=== PATIENT | male | born 1935 | race Hispanic/Latino ===

== ENCOUNTER 2018-07-29 00:12 | Observation (INO) | payer MEDICARE, BC ==
[2018-07-29] MEDS ORDERED: Tetanus/Diphtheria Toxoids 0.5 ml Syringe IM ONE ×2 (01:06→01:33)
[2018-07-29 02:00] LABS: BASO % 0.3 % (0.0-2.0); HEMOGLOBIN 13.2 g/dL (12.0-18.0); LYMPH # 1.2 K/uL (1.0-4.3); LYMPH % 7.8 % (20.0-40.0); MEAN CELL VOLUME 92.7 fl (80.0-94.0); MEAN CORPUSCULAR HEMOGLOBIN 31.7 pg (27.0-31.0); MEAN CORPUSCULAR HGB CONC 34.2 g/dL (33.0-37.0); MEAN PLATELET VOLUME 8.6 fl (7.2-11.7); MONO # 0.9 K/uL (0.0-0.8); NEUT # 12.9 K/uL (1.8-7.0); NEUT % 85.9 % (50.0-75.0); NRBC % 0.1 % (0.0-0.0); PLATELET COUNT 227 K/uL (130-400); RBC 4.18 Mil/uL (4.40-5.90); RED CELL DISTRIBUTION WIDTH 12.6 % (11.5-14.5)
[2018-07-29 02:14] LABS: BLOOD UREA NITROGEN 14 mg/dl (9-20); CALCIUM 9.4 mg/dL (8.4-10.2); GFR NON-AFRICAN AMERICAN > 60
--- NOTE | 2018-07-29 02:26 | ED PDOC ---
Syncope/Near Syncope/Dizziness Time Seen by Provider: 07/29/18 00:19 Chief Complaint (Nursing): Syncope Chief Complaint (Provider): syncope History Per: Patient, Family () Additional Complaint(s): 83 y/o M with hx of DM, HTN, and HL who presents after syncopal episode with facial trauma. Patient was putting away dishes this evening at about 7pm when he suddenly had a syncopal episode. He states that his found him face down on the ground. He sustained a small laceration to Right side of face with a piece of glass plate in it that his cleaned and he got a black eye. Denies palpitations, SOB, C/P, dizziness, loss of bowel or bladder function. He then stood up to walk with his walker, walked 5 steps, felt lightheaded and fell forward with brief syncopal episode. He then hit his face on the walker and knocked out his 2 front teeth and sustained a laceration to his forehead, nose and chin. Denies prior hx of syncope or arrhythmia. He is not up to date on his tetanus vaccine. Pt states having Right shoulder/arm pain and is unable to raise his Right arm. Past Medical History Reviewed: Historical Data, Nursing Documentation, Vital Signs Vital Signs: Last Vital Signs Temp 97.6 F 07/29/18 00:18 Pulse 86 07/29/18 00:18 Resp 18 07/29/18 00:18 BP 159/91 H 07/29/18 00:18 Pulse Ox 96 07/29/18 00:18 - Medical History PMH: Diabetes, HTN, Hypercholesterolemia - Family History Family History: States: Unknown Family Hx - Allergies Allergies/Adverse Reactions: Allergies Allergy/AdvReac Type Severity Reaction Status Date / Time Penicillins Allergy RASH Verified 07/29/18 00:18 Physical Exam - Reviewed Nursing Documentation Reviewed: Yes Vital Signs Reviewed: Yes - Physical Exam Appears: Positive for: Uncomfortable Head Exam: Negative for: ATRAUMATIC (excoriation with small oozing of blood lateral to Right eye (not amenable to suture), small avulsion above left eye on forehead. + ecchymosis below Right eye. Excoriation to left nare and chin w/ small ooze of blood. ) ENT: Negative for: Other (B/L central incisors loose with blood clot in left central incisor, blood noted in mouth, no lacerations to oral mucosa) Extremity: Positive for: Tenderness (proximal humerus), Capillary Refill (< 2sec), Deformity (Right humeral deformity, + edema, no ecchymosis), Other. Ne gative for: Normal ROM (decreased flexion of Right arm) Neurologic/Psych: Positive for: Alert, operations vocational instructor II-XII (able to puff out cheeks, no tongue deviation, symmetrical smile. ), Oriented. Negative for: Motor/Sensory Deficits (no motor or sensory deficits), Aphasia, Facial Droop - Laboratory Results Result Diagrams: 07/29/18 01:53 07/29/18 01:53 - ECG O2 Sat by Pulse Oximetry: 96 Medical Decision Making Medical Decision Making: CBC, CMP, Trop Head CT w/o contrast Tele EKG Right shoulder X-ray Maxillofacial CT w/o contrast serum ETOH EKG: sinus, HR 80, no arrhythmia or ischemic change. CBC: WBCs 15K, U/A and urine culture ordered. Right shoulder x-ray: displaced proximal humeral fracture. Ice pack to Right arm. Right arm sling placed. Head CT w/o contrast: There is normal configuration of sella turcica. There are no intra or extra-axial collections. There is no mass effect or midline shift. There is no evidence of hematoma formation. No hydrocephalus is present. The ventricles are symmetrical. No abnormal calcifications are present. There is diffuse age-appropriate cerebellar and cerebral atrophy with proportionally dilated ventricles and cortical sulci. There are bilateral periventricular and subcortical white matter hypolucencies compatible with mild chronic microvascular disease. Otherwise, no significant focal abnormalities are seen either in the posterior fossa or supratentorial compartment. IMPRESSION: 1. Age-appropriate cerebellar and cerebral atrophy. 2. Mild chronic microvascular disease. 3. No evidence of acute intracranial pathology. Maxillofacial CT: Anterior facial soft tissue edema. Avulsion fractures of the dental roots in the anterior/upper midline aspect of the maxilla. Overlying soft tissue contusion. Surrounding soft tissue emphysema. Mild chronic mucosal inflammatory changes of the maxillary sinuses and ethmoid air cells. Normal bilateral orbital contents. Normal bilateral medial and inferior orbital scott. Normal bilateral maxillary bones. Normal bilateral maxillary sinuses. Normal bilateral frontozygomatic arches. Normal bilateral zygomatic temporal arches. Normal nasal bones. Normal anterior nasal spine. Normal visualized frontal, ethmoidal and sphenoid sinuses. Impression: Anterior facial soft tissue edema. Avulsion fractures of the dental roots canals in the anterior/left paramidline aspect of the maxilla. Overlying soft tissue contusion. Surrounding soft tissue emphysema. Patient and informed of X-ray and CT scan results. They prefer Dr. Manley from orthopedics. Dr. Manley to be called in AM. Patient to be admitted under Dr. Oates for telemetry monitoring and orthopedic consultation. Disposition - Clinical Impression Clinical Impression: Syncope, Closed right humeral fracture - Patient ED Disposition Is Patient to be Admitted: Yes Discussed With : Diogo Oates Doctor Will See Patient In The: ED Counseled Patient/Family Regarding: Studies Performed, Diagnosis, Need For Followup - Disposition Disposition: Transfer of Care Disposition Time: 03:30 Condition: FAIR
[2018-07-29 02:48] LABS: LARGE PLATELETS PRESENT; LYMPHOCYTE 8 % (20-50); MONOCYTE 6 % (0-10); NEUTROPHIL 86 % (42-75); PLATELET ESTIMATE NORMAL (NORMAL); TOTAL CELLS COUNTED 100
[2018-07-29 03:38] LABS: URINE BILIRUBIN NEGATIVE (NEGATIVE); URINE BLOOD NEGATIVE (NEGATIVE); URINE CLARITY CLEAR (Clear); URINE COLOR YELLOW (YELLOW); URINE GLUCOSE (UA) >=500 mg/dL (NEGATIVE); URINE LEUKOCYTE ESTERASE NEG Leu/uL (Negative); URINE PROTEIN NEGATIVE (NEGATIVE); URINE UROBILINOGEN 0.2-1.0 mg/dL (0.2-1.0)
[2018-07-29] MEDS ORDERED: Sodium Chloride 0.9% 1,000 ML IV SCH (04:30)
[2018-07-29] MEDS ORDERED: Glucagon Recombinant 1 mg Inj IM PRN (04:37)
[2018-07-29] MEDS ORDERED: Dextrose 50% SYRINGE Inj (50 ml) IV PRN (04:37)
--- NOTE | 2018-07-29 04:45 | CP.PCM.HP ---
<Erma Ching - Last Filed: 07/29/18 05:34> History of Present Illness - History of Present Illness History of Present Illness: HPI 83 yo M with history of hypertension, NIDDM2, dyslipemia, glaucoma, admitted due to syncope and subsequent RIGHT shoulder trauma. Pt presented to ED, brought in by EMS after 2 falls at home. Upon exam, he is AAOx3. Patient states that he was putting away dishes around 7:30 pm today, and was standing on his tip-toes, reaching up with his right hand to put a plate away on a top shelf, and next thing he knew he was on the ground. He denies feeling dizzy or lightheaded before the fall but does not believe he blacked out or lost con sciousness. Pt's states she heard commotion and came into kitchen to find him on the floor. He had a shard of a broken plate in his right rastafarian, which his cleaned out and put a dressing over. He was able to get up with assistance, and use his walker; did not want to come to ED at that point. Later that evening, he wanted to use the restroom around 11 pm, used walker to get up and walk towards restroom. As per , he said "I am light headed," and fell forward, hitting his head/face on horizontal bar of walker. At this point, called EMS, and EMS came, picked up pt off floor and brought to ED. Pt states he sustained injury to his R shoulder in first fall, and to his front two teeth in second fall. He did not lose function/control of bowel/bladder during either fall. Denies ringing in his ears, feeling like the room was spinning, blurred vision (out of norm due to chronic ocular issues) Pt admits to having a cocktail around 3-4 pm and 2 glasses of wine with dinner, which he does almost daily. He thinks he may have fallen due to the alcohol intake. ROS: aside from above, denies headache, vision changes, chest pain, shortness of breath, abdominal pain, nausea, vomitting, dysuria, issues with bowel movements. Past Med hx: HTN, NIDDM,dyslipidemia Past Surg hx: appendicitis, tonsillectomy Soc hx: former smoker (ages [age], 1/2 ppd at most, quit 50 yrs ago); drinks 1 cocktail (martini) in the afternoon and 1-2 glasses of wine with dinner, denies drug use. Lives with . Fam hx: father had pancreatic ca; no similar episodes of falls in family as far as pt knows Allergies: penicillin (rash) Meds: as per med rec, med list given to RN in ED; aspirin 81 mg daily, klonopin 0.5 mg HS, glucotrol 5 mg daily, ramipril 10 mg daily, clonidine 0.1 mg PO BID, simvastatin 40 mg daily, januvia 100 mg daily, lumigan eye drops both eyes HS, timolol both eyes daily ED course: Vitals: BP 159/91, HR 86, T 97.6, O2 sat 96 on room air, RR 18 EKG: sinus, HR 80, no arrhythmia or ischemic change. CBC: WBC 15; may be reactive CMP: glucose 319 Troponin neg Alcohol level 70 UA/Urine culture collected Head w/o contrast CT done- IMPRESSION: 1. Age-appropriate cerebellar and cerebral atrophy. 2. Mild chronic microvascular disease. 3. No evidence of acute intracranial pathology. Maxillofacial w/o contrast CT done: Impression: Anterior facial soft tissue edema. Avulsion fractures of the dental roots canals in the anterior/left paramidline aspect of the maxilla. Overlying soft tissue contusion. Surrounding soft tissue emphysema. Shoulder X-Ray done: displaced proximal humeral fracture. Tetanus vaccine administered 600 mg ibuprofen PO Ice pack to Right arm; right arm sling placed Present on Admission - Present on Admission Any Indicators Present on Admission: Yes History of Uncontrolled Diabetes: Yes Review of Systems - Review of Systems Review of Systems: as per HPI Past Patient History - Past Medical History & Family History Past Medical History?: Yes Past Family History: Reviewed and not pertinent - Past Social History Smoking Status: Former Smoker Alcohol: > 2 Drinks/Day Drugs: Denies Home Situation {Lives}: With Family - CARDIAC Hx Cardiac Disorders: Yes Hx Hypercholesterolemia: Yes Hx Hypertension: Yes - PULMONARY Hx Respiratory Disorders: No - NEUROLOGICAL Hx Neurological Disorder: No - HEENT Hx HEENT Problems: No - RENAL Hx Chronic Kidney Disease: No - ENDOCRINE/METABOLIC Hx Endocrine Disorders: Yes Hx Diabetes Mellitus Type 2: Yes - HEMATOLOGICAL/ONCOLOGICAL Hx Blood Disorders: No - INTEGUMENTARY Hx Dermatological Problems: No - MUSCULOSKELETAL/RHEUMATOLOGICAL Hx Musculoskeletal Disorders: No - GASTROINTESTINAL Hx Gastrointestinal Disorders: No - GENITOURINARY/GYNECOLOGICAL Hx Genitourinary Disorders: No - PSYCHIATRIC Hx Psychophysiologic Disorder: No Hx Substance Use: No - SURGICAL HISTORY Hx Surgeries: Yes Hx Appendectomy: Yes Hx Tonsillectomy: Yes - ANESTHESIA Hx Anesthesia: Yes Hx Anesthesia Reactions: No Meds Allergies/Adverse Reactions: Allergies Allergy/AdvReac Type Severity Reaction Status Date / Time Penicillins Allergy RASH Verified 07/29/18 00:18 Physical Exam - Constitutional Appears: Non-toxic, No Acute Distress - Head Exam Head Exam: NORMOCEPHALIC. absent: ATRAUMATIC Additional comments: dressing to RIGHT rastafarian lateral to RIGHT eye, ecchymosis below RIGHT eye. Dressing on LEFT nare. Dressings dry, not soaked through Multiple bruises/small lacerations on nose/cheeks - Eye Exam Eye Exam: EOMI, PERRL - ENT Exam ENT Exam: Mucous Membranes Dry Additional comments: evidence of trauma to front teeth; no bleeding lacerations noted in oral cavity - Neck Exam Neck exam: Positive for: Full Rom. Negative for: Tenderness - Respiratory Exam Respiratory Exam: Clear to Auscultation Bilateral, NORMAL BREATHING PATTERN. absent: Respiratory Distress - Cardiovascular Exam Cardiovascular Exam: REGULAR RHYTHM, +S1, +S2 - GI/Abdominal Exam GI & Abdominal Exam: Soft. absent: Tenderness - Extremities Exam Extremities exam: Negative for: calf tenderness, full ROM Additional comments: R upper ext in sling; ROM not tested due to already known fracture and sling in place No other evidence of joint trauma/limited ROM of other large joints No pedal edema - Neurological Exam Neurological exam: Alert, CN II-XII Intact, Oriented x3 Additional comments: speech clear, no facial droop no focal deficits apparent - Psychiatric Exam Psychiatric exam: Normal Mood - Skin Skin Exam: Abrasion (as above), Warm Results - Vital Signs Recent Vital Signs: Last Vital Signs Temp 97.6 F 07/29/18 00:18 Pulse 88 07/29/18 03:36 Resp 19 07/29/18 03:36 BP 155/73 H 07/29/18 03:36 Pulse Ox 96 07/29/18 03:38 - Labs Result Diagrams: 07/29/18 01:53 07/29/18 01:53 Labs: Laboratory Results - last 24 hr 07/29/18 07/29/18 01:53 01:53 WBC 15.0 H RBC 4.18 L Hgb 13.2 Hct 38.8 MCV 92.7 MCH 31.7 H MCHC 34.2 RDW 12.6 Plt Count 227 MPV 8.6 Neut % (Auto) 85.9 H Lymph % (Auto) 7.8 L [place] % (Auto) 6.0 Eos % (Auto) 0.0 Baso % (Auto) 0.3 Neut # (Auto) 12.9 H Lymph # (Auto) 1.2 [place] # (Auto) 0.9 H Eos # (Auto) 0.0 Baso # (Auto) 0.0 Neutrophils % (Manual) 86 H Lymphocytes % (Manual) 8 L Monocytes % (Manual) 6 Platelet Estimate Normal Large Platelets Present RBC Morphology Normal Sodium 136 Potassium 4.3 Chloride 98 Carbon Dioxide 20 L Anion Gap 22 H BUN 14 Creatinine 0.9 Est GFR ( Amer) > 60 Est GFR (Non-Af Amer) > 60 Random Glucose 319 H Calcium 9.4 Troponin I < 0.0120 Alcohol, Quantitative 70 H Assessment & Plan - Assessment and Plan (Free Text) Assessment: 83 yo M with history of hypertension, NIDDM2, dyslipemia, glaucoma, admitted due to syncope x2 at home, and subsequent RIGHT shoulder trauma with displaced proximal humerus fracture. Plan: Displaced proximal humeral fracture - Right arm sling in place from ED - Ortho consult - Dr. Manley - NPO for possible intervention - PT/INR, Type and Screen, CBC in am - Pain control w/ toradol for now Syncope - Admitted to tele, continuous equipment monitor phototypesetting - May be due to EtOH - Echocardiogram - Carotid/vertebral duplex - B12, folate, Mg, Phos, CMP in am - F/u UA, urine culture Lacerations to face - s/p tetanus vaccine - Topical bacitracin NIDDM2 - Hold home meds januvia, glucotrol for now, NPO - Accuchecks Q6 hrs; moderate coverage scale and hypoglycemia protocol Hypertension - Hold home meds clonidine, ramipril for now, NPO Hyperlipidemia - Hold home med simvastatin for now Glaucoma - Resume home meds timolol, lumigan Diet - NPO - 80 ml/hr NS IVF DVT prophylaxis - SCD for now Pt seen/examined with Dr. Oates. <Diogo Oates - Last Filed: 07/29/18 07:05> Results - Vital Signs Recent Vital Signs: Last Vital Signs Temp 97.7 F 07/29/18 05:12 Pulse 88 07/29/18 06:25 Resp 18 07/29/18 05:35 BP 130/80 07/29/18 06:25 Pulse Ox 99 07/29/18 05:35 - Labs Result Diagrams: 07/29/18 01:53 07/29/18 01:53 Labs: Laboratory Results - last 24 hr 07/29/18 07/29/18 07/29/18 01:53 01:53 03:15 WBC 15.0 H RBC 4.18 L Hgb 13.2 Hct 38.8 MCV 92.7 MCH 31.7 H MCHC 34.2 RDW 12.6 Plt Count 227 MPV 8.6 Neut % (Auto) 85.9 H Lymph % (Auto) 7.8 L [place] % (Auto) 6.0 Eos % (Auto) 0.0 Baso % (Auto) 0.3 Neut # (Auto) 12.9 H Lymph # (Auto) 1.2 [place] # (Auto) 0.9 H Eos # (Auto) 0.0 Baso # (Auto) 0.0 Neutrophils % (Manual) 86 H Lymphocytes % (Manual) 8 L Monocytes % (Manual) 6 Platelet Estimate Normal Large Platelets Present RBC Morphology Normal Sodium 136 Potassium 4.3 Chloride 98 Carbon Dioxide 20 L Anion Gap 22 H BUN 14 Creatinine 0.9 Est GFR ( Amer) > 60 Est GFR (Non-Af Amer) > 60 POC Glucose (mg/dL) Random Glucose 319 H Calcium 9.4 Troponin I < 0.0120 Urine Color Yellow Urine Clarity Clear Urine pH 5.0 Ur Specific [place] 1.023 Urine Protein Negative Urine Glucose (UA) >=500 Urine Ketones 20 Urine Blood Negative Urine Nitrate Negative Urine Bilirubin Negative Urine Urobilinogen 0.2-1.0 Ur Leukocyte Esterase Neg Urine RBC (Auto) < 1 Urine Microscopic WBC < 1 Hyaline Casts 3-5 H Alcohol, Quantitative 70 H 07/29/18 05:28 WBC RBC Hgb Hct MCV MCH MCHC RDW Plt Count MPV Neut % (Auto) Lymph % (Auto) [place] % (Auto) Eos % (Auto) Baso % (Auto) Neut # (Auto) Lymph # (Auto) [place] # (Auto) Eos # (Auto) Baso # (Auto) Neutrophils % (Manual) Lymphocytes % (Manual) Monocytes % (Manual) Platelet Estimate Large Platelets RBC Morphology Sodium Potassium Chloride Carbon Dioxide Anion Gap BUN Creatinine Est GFR ( Amer) Est GFR (Non-Af Amer) POC Glucose (mg/dL) 363 H Random Glucose Calcium Troponin I Urine Color Urine Clarity Urine pH Ur Specific [place] Urine Protein Urine Glucose (UA) Urine Ketones Urine Blood Urine Nitrate Urine Bilirubin Urine Urobilinogen Ur Leukocyte Esterase Urine RBC (Auto) Urine Microscopic WBC Hyaline Casts Alcohol, Quantitative Attending/Attestation - Attestation I have personally seen and examined this patient.: Yes I have fully participated in the care of the patient.: Yes I have reviewed all pertinent clinical information: Yes Notes (Text): 07/29/18 07:01 I saw and examined this patient shoulder to shoulder with Dr Ching. i agree w ith the assessment and plan outlined above. The patient will be placed on Telemetry monitoring for Cardiac dysrrhythmias. ECHO will be done along with Carotid US. Cardiology is consulted. Orthopedic is consulted for the Right shoulder fracture. Diogo Oates MD.
[2018-07-29 06:18] VITALS: RESP 18
[2018-07-29] MEDS ORDERED: EnalaprilAT 1.25 mg/ml Inj IVP STA (06:40)
[2018-07-29] MEDS: Insulin Lispro (humaLOG) 100 Units/ml Inj SC SCH ×2 (06:54→11:45)
--- NOTE | 2018-07-29 08:11 | CT ---
Date of service: 07/29/2018 PROCEDURE: CT HEAD WITHOUT CONTRAST. HISTORY: syncopal episode COMPARISON: None available. TECHNIQUE: Axial computed tomography images were obtained through the head/brain without intravenous contrast. Radiation dose: Total exam DLP = 839.97 mGy-cm. This CT exam was performed using one or more of the following dose reduction techniques: Automated exposure control, adjustment of the mA and/or kV according to patient size, and/or use of iterative reconstruction technique. FINDINGS: HEMORRHAGE: No intracranial hemorrhage. BRAIN: No mass effect or edema. Atrophy and mild chronic periventricular white matter ischemic disease. VENTRICLES: Unremarkable. No hydrocephalus. CALVARIUM: Unremarkable. PARANASAL SINUSES: Unremarkable as visualized. No significant inflammatory changes. MASTOID AIR CELLS: Unremarkable as visualized. No inflammatory changes. OTHER FINDINGS: None. IMPRESSION: No acute hemorrhage.
--- NOTE | 2018-07-29 08:14 | CT ---
Date of service: 07/29/2018 PROCEDURE: CT MAXILLOFACIAL BONES WITHOUT CONTRAST HISTORY: syncope COMPARISON: None available. TECHNIQUE: Contiguous axial CT images of the maxillofacial bones were obtained. Coronal and sagittal reformats were generated. Radiation dose: Total exam DLP = 836.12 mGy-cm. This CT exam was performed using one or more of the following dose reduction techniques: Automated exposure control, adjustment of the mA and/or kV according to patient size, and/or use of iterative reconstruction technique. FINDINGS: NASAL BONES: Unremarkable. ORBITS: Unremarkable. PARANASAL SINUSES/ MASTOIDS: Clear. MAXILLA: Avulsion fractures of the dental root canals in the anterior left paramidline aspect of the maxilla. MANDIBLE/ TEMPOROMANDIBULAR JOINTS: Unremarkable. SKULL BASE: Unremarkable. TEMPORAL BONES: Middle ears and mastoid grossly unremarkable. OTHER FINDINGS: Anterior facial soft tissue edema with. Soft tissue contusion. Surrounding soft tissue emphysema. IMPRESSION: Avulsion fractures of the dental root canals in the anterior left paramidline aspect of the maxilla.
--- NOTE | 2018-07-29 08:38 | RAD ---
Date of service: 07/29/2018 PROCEDURE: Radiographs of the Right Shoulder HISTORY: s/p fall, shoulder pain, ? dislocation COMPARISON: No prior. FINDINGS: BONES: Comminuted impaction fracture of the proximal humeral neck. JOINTS: Normal. Glenohumeral and acromioclavicular joints preserved. No osteoarthritis. SOFT TISSUES: Normal. OTHER FINDINGS: None. IMPRESSION: Comminuted impaction fracture of the proximal humeral neck.
[2018-07-29] MEDS ORDERED: RAMIPRIL 10 MG PO SCH (09:00)
[2018-07-29] MEDS ORDERED: Timolol 0.25% Ophth SOLN OU SCH (09:00)
--- NOTE | 2018-07-29 09:06 | RAD ---
Date of service: 07/29/2018 PROCEDURE: CHEST RADIOGRAPH, 1 VIEW HISTORY: preop COMPARISON: None available. FINDINGS: LUNGS: Clear. PLEURA: No pneumothorax or pleural fluid seen. CARDIOVASCULAR: No aortic atherosclerotic calcification present. Normal. OSSEOUS STRUCTURES: No significant abnormalities. VISUALIZED UPPER ABDOMEN: Normal. OTHER FINDINGS: None. IMPRESSION: No active disease.
--- NOTE | 2018-07-29 10:53 | CARD ---
APPROVED REPORT Date of service: 07/29/2018 EXAM: Two-dimensional and M-mode echocardiogram with Doppler and color Doppler. Other Information Quality : AverageRhythm : NSR INDICATION Syncope 2D DIMENSIONS IVSd1.32 (0.7-1.1cm)LVDd3.48 (3.9-5.9cm) LVOT Diameter1.71 (1.8-2.4cm)PWd1.29 (0.7-1.1cm) IVSs1.53 (0.8-1.2cm)LVDs2.28 (2.5-4.0cm) FS (%) 34.6 %PWs1.30 (0.8-1.2cm) M-Mode DIMENSIONS Left Atrium (MM)3.38 (2.5-4.0cm)IVSd1.12 (0.7-1.1cm) Aortic Root2.47 (2.2-3.7cm)LVDd3.71 (4.0-5.6cm) Aortic Cusp Exc.1.53 (1.5-2.0cm)PWd1.26 (0.7-1.1cm) IVSs1.65 cmFS (%) 43 % LVDs2.12 (2.0-3.8cm)PWs1.82 cm Aortic Valve AoV Peak Rmbrjyiz402.8cm/sAoV VTI27.9cmAO Peak GR.17mmHg LVOT Peak Zsdcwfxb883.3cm/sLVOT VTI18.08cmAO Mean GR.9mmHg ESTEPHANIE (VMAX)0.38rr5KKL (VTI)0.80cm2 Mitral Valve MV E Mwschtsu50.2cm/sMV DECEL [id number] A Iqrqhcar112.4cm/s MV KZD73sgO/A ratio0.6MVA (PHT)2.88cm2 TDI E/Lateral E'0.0E/Medial E'0.0 LEFT VENTRICLE The left ventricle is normal size. There is normal left ventricular wall thickness. The left ventricle is hyperdynamic. >80% Vigorous wall motion. LV cavity is virtually obliterated at end systole. Transmitral Doppler flow pattern is Grade I-abnormal relaxation pattern. RIGHT VENTRICLE The right ventricle is normal size. There is normal right ventricular wall thickness. The right ventricular systolic function is normal. ATRIA The left atrium size is normal. The right atrium size is normal. AORTIC VALVE The aortic valve is normal in structure. No aortic regurgitation is present. There is no aortic valvular stenosis. MITRAL VALVE The mitral valve is normal in structure. Chordae show BRIDGETT with a mild gradient in the LV outflow tract. There is no evidence of mitral valve prolapse. There is no mitral valve stenosis. There is no mitral valve regurgitation noted. TRICUSPID VALVE The tricuspid valve is normal in structure. There is no tricuspid valve regurgitation noted. PULMONIC VALVE The pulmonary valve is normal in structure. There is no pulmonic valvular regurgitation. GREAT VESSELS The aortic root is normal in size. Due to poor image quality, the IVC could not be assessed. PERICARDIAL EFFUSION The pericardium appears normal. <Conclusion> The left ventricle is normal size. There is normal left ventricular wall thickness. Vigorous wall motion. LV cavity is virtually obliterated at end systole. The left ventricle is hyperdynamic. >80% Transmitral Doppler flow pattern is Grade I-abnormal relaxation pattern. Chordae show BRIDGETT with a mild gradient in the LV outflow tract.
[2018-07-29 11:05] LABS: BASO % 0.3 % (0.0-2.0); HEMOGLOBIN 11.4 g/dL (12.0-18.0); INR 1.1; LYMPH # 1.3 K/uL (1.0-4.3); LYMPH % 8.4 % (20.0-40.0); MEAN CELL VOLUME 92.2 fl (80.0-94.0); MEAN CORPUSCULAR HEMOGLOBIN 31.9 pg (27.0-31.0); MEAN CORPUSCULAR HGB CONC 34.6 g/dL (33.0-37.0); MEAN PLATELET VOLUME 9.4 fl (7.2-11.7); MONO # 1.6 K/uL (0.0-0.8); MONO % 10.2 % (0.0-10.0); NEUT # 12.3 K/uL (1.8-7.0); NEUT % 81.1 % (50.0-75.0); NRBC % 0.1 % (0.0-0.0); PROTHROMBIN TIME 12.3 Seconds (9.8-13.1); RBC 3.57 Mil/uL (4.40-5.90); RED CELL DISTRIBUTION WIDTH 12.6 % (11.5-14.5); WHITE BLOOD COUNT 15.2 K/uL (4.8-10.8)
--- NOTE | 2018-07-29 11:11 | CP.PCM.CON ---
History of Present Illness - History of Present Illness History of Present Illness: This 83-year-old man hypertensive with diabetes and dyslipidemia and glaucoma came into the hospital after having fallen at home having injured his right shoulder and fell again 3 hours later in his bathroom severely injur ing his face. He is being evaluated for surgical fixation of his right shoulder injury. The patient is quite active and climbs multiple flights of stairs and is able to walk 6-8 blocks couple of times a day briskly without any difficulty. He has never experienced any chest pain or palpitations or sudden shortness of breath suggestive of congestive cardiac failure. He is not a smoker. He has a history of spinal stenosis. Physical examination shows an elderly pleasant man with multiple lacerations of face which have been addressed. He is alert awake and coherent. Breathes comfortably at 16 breaths/min and can carry on a conversation. His heart rate was 68 bpm regular and his blood pressure was 130/70 mmHg. His jugular venous pressure was not elevated and there was no edema over his lower extremity. The pedal pulses were well felt. There were no carotid bruits. The apex was not p alpable. The first and second heart sounds were normal. There was a brief systolic murmur in the second and third intercostal space in the left parasternal region. It did not radiate to his neck or to his axilla. There were no rales. His abdomen was soft liver and spleen are not palpable. His electrocardiogram shows sinus rhythm with a normal EKG pattern. Echocardiogram shows vigorous left ventricular systolic function with a small gradient in the left ventricular outflow tract. His lab data was noted. Impression: Accidental fall with right shoulder injury. History of hypertension, diabetes and dyslipidemia. Glaucoma. Spinal stenosis. The patient is medically stable to proceed with the planned surgical intervention under necessary anesthesia. Past Patient History - Past Medical History & Family History Past Medical History?: Yes Past Family History: Reviewed and not pertinent - Past Social History Smoking Status: Former Smoker Alcohol: > 2 Drinks/Day Drugs: Denies Home Situation {Lives}: With Family - CARDIAC Hx Cardiac Disorders: Yes Hx Hypercholesterolemia: Yes Hx Hypertension: Yes - PULMONARY Hx Respiratory Disorders: No - NEUROLOGICAL Hx Neurological Disorder: No - HEENT Hx HEENT Problems: No - RENAL Hx Chronic Kidney Disease: No - ENDOCRINE/METABOLIC Hx Endocrine Disorders: Yes Hx Diabetes Mellitus Type 2: Yes - HEMATOLOGICAL/ONCOLOGICAL Hx Blood Disorders: No - INTEGUMENTARY Hx Dermatological Problems: No - MUSCULOSKELETAL/RHEUMATOLOGICAL Hx Musculoskeletal Disorders: No - GASTROINTESTINAL Hx Gastrointestinal Disorders: No - GENITOURINARY/GYNECOLOGICAL Hx Genitourinary Disorders: No - PSYCHIATRIC Hx Psychophysiologic Disorder: No Hx Substance Use: No - SURGICAL HISTORY Hx Surgeries: Yes Hx Appendectomy: Yes Hx Tonsillectomy: Yes - ANESTHESIA Hx Anesthesia: Yes Hx Anesthesia Reactions: No Meds Allergies/Adverse Reactions: Allergies Allergy/AdvReac Type Severity Reaction Status Date / Time Penicillins Allergy RASH Verified 07/29/18 00:18 - Medications Medications: Current Medications Aspirin (Ecotrin) 81 mg PO DAILY [facility] Atorvastatin Calcium (Lipitor) 20 mg PO HS [facility] Bacitracin (Bacitracin) 1 ea TOP TID MIKEY Clonazepam (Klonopin) 0.5 mg PO HS [facility] Clonidine HCl (Catapres) 0.1 mg PO BID [facility] Dextrose (Dextrose 50% Inj) 0 ml IV STAT PRN; Protocol PRN Reason: Hypoglycemia Protocol Dextrose (Glutose 15) 0 gm PO ONCE PRN; Protocol PRN Reason: Hypoglycemia Protocol Glipizide (Glucotrol) 5 mg PO BID [facility] Glucagon (Glucagen Diagnostic Kit) 0 mg IM STAT PRN; Protocol PRN Reason: Hypoglycemia Protocol Sodium Chloride (Sodium Chloride 0.9%) 1,000 mls @ 80 mls/hr IV .[id number] [facility] Last Admin: 07/29/18 06:31 Dose: 80 mls/hr Insulin Human Lispro (Humalog) 0 units SC Q6 [facility]; Protocol Last Admin: 07/29/18 06:54 Dose: 8 u Ketorolac Tromethamine (Toradol) 15 mg IVP Q6 PRN PRN Reason: Pain, Mild (1-3) Ketorolac Tromethamine (Toradol) 30 mg IVP Q6 PRN PRN Reason: Pain, moderate (4-7) Latanoprost (Xalatan Opht) 1 drop OU HS [facility] Ramipril (Altace) 10 mg PO DAILY [facility] Sitagliptin Phosphate (Januvia) 100 mg PO DAILY [facility] Timolol Maleate (Timoptic 0.25% Ophth Soln) 1 drop OU DAILY [facility] Results - Vital Signs Recent Vital Signs: Last Vital Signs Temp 97.9 F 07/29/18 08:54 Pulse 94 H 02/16/19 08:54 Resp 18 07/29/18 08:54 BP 147/78 07/29/18 09:56 Pulse Ox 100 07/29/18 08:54 - Labs Result Diagrams: 07/29/18 01:53 07/29/18 01:53 Labs: Laboratory Results - last 24 hr 07/29/18 07/29/18 07/29/18 01:53 01:53 03:15 WBC 15.0 H RBC 4.18 L Hgb 13.2 Hct 38.8 MCV 92.7 MCH 31.7 H MCHC 34.2 RDW 12.6 Plt Count 227 MPV 8.6 Neut % (Auto) 85.9 H Lymph % (Auto) 7.8 L [place] % (Auto) 6.0 Eos % (Auto) 0.0 Baso % (Auto) 0.3 Neut # (Auto) 12.9 H Lymph # (Auto) 1.2 [place] # (Auto) 0.9 H Eos # (Auto) 0.0 Baso # (Auto) 0.0 Neutrophils % (Manual) 86 H Lymphocytes % (Manual) 8 L Monocytes % (Manual) 6 Platelet Estimate Normal Large Platelets Present RBC Morphology Normal PT INR Sodium 136 Potassium 4.3 Chloride 98 Carbon Dioxide 20 L Anion Gap 22 H BUN 14 Creatinine 0.9 Est GFR ( Amer) > 60 Est GFR (Non-Af Amer) > 60 POC Glucose (mg/dL) Random Glucose 319 H Calcium 9.4 Troponin I < 0.0120 Urine Color Yellow Urine Clarity Clear Urine pH 5.0 Ur Specific [place] 1.023 Urine Protein Negative Urine Glucose (UA) >=500 Urine Ketones 20 Urine Blood Negative Urine Nitrate Negative Urine Bilirubin Negative Urine Urobilinogen 0.2-1.0 Ur Leukocyte Esterase Neg Urine RBC (Auto) < 1 Urine Microscopic WBC < 1 Hyaline Casts 3-5 H Alcohol, Quantitative 70 H BBK History Checked 07/29/18 07/29/18 07/29/18 05:28 10:30 10:30 WBC RBC Hgb Hct MCV MCH MCHC RDW Plt Count MPV Neut % (Auto) Lymph % (Auto) [place] % (Auto) Eos % (Auto) Baso % (Auto) Neut # (Auto) Lymph # (Auto) [place] # (Auto) Eos # (Auto) Baso # (Auto) Neutrophils % (Manual) Lymphocytes % (Manual) Monocytes % (Manual) Platelet Estimate Large Platelets RBC Morphology PT 12.3 INR 1.1 Sodium Potassium Chloride Carbon Dioxide Anion Gap BUN Creatinine Est GFR ( Amer) Est GFR (Non-Af Amer) POC Glucose (mg/dL) 363 H Random Glucose Calcium Troponin I Urine Color Urine Clarity Urine pH Ur Specific [place] Urine Protein Urine Glucose (UA) Urine Ketones Urine Blood Urine Nitrate Urine Bilirubin Urine Urobilinogen Ur Leukocyte Esterase Urine RBC (Auto) Urine Microscopic WBC Hyaline Casts Alcohol, Quantitative BBK History Checked No verified bt 07/29/18 10:59 WBC RBC Hgb Hct MCV MCH MCHC RDW Plt Count MPV Neut % (Auto) Lymph % (Auto) [place] % (Auto) Eos % (Auto) Baso % (Auto) Neut # (Auto) Lymph # (Auto) [place] # (Auto) Eos # (Auto) Baso # (Auto) Neutrophils % (Manual) Lymphocytes % (Manual) Monocytes % (Manual) Platelet Estimate Large Platelets RBC Morphology PT INR Sodium Potassium Chloride Carbon Dioxide Anion Gap BUN Creatinine Est GFR ( Amer) Est GFR (Non-Af Amer) POC Glucose (mg/dL) 341 H Random Glucose Calcium Troponin I Urine Color Urine Clarity Urine pH Ur Specific [place] Urine Protein Urine Glucose (UA) Urine Ketones Urine Blood Urine Nitrate Urine Bilirubin Urine Urobilinogen Ur Leukocyte Esterase Urine RBC (Auto) Urine Microscopic WBC Hyaline Casts Alcohol, Quantitative BBK History Checked
[2018-07-29 11:13] LABS: ALB/GLOB RATIO 1.3 (1.0-2.1); ALT/SGPT 24 U/L (21-72); AST/SGOT 27 U/L (17-59); BLOOD UREA NITROGEN 22 mg/dl (9-20); CALCIUM 9.3 mg/dL (8.4-10.2); GFR NON-AFRICAN AMERICAN 53
[2018-07-29] MEDS: Bacitracin 500 Units/gm Oint Foilpak UD TOP SCH ×2 (11:44→14:52)
[2018-07-29 12:45] VITALS: BP 145/86; PULSE 86; TEMP 97.6; O2SAT 95
--- NOTE | 2018-07-29 13:58 | CT ---
Date of service: 07/29/2018 PROCEDURE: HISTORY: right femoral fracture COMPARISON: TECHNIQUE: FINDINGS: Comminuted fracture of the proximal humor neck and head with multiple fracture fragments and associated the soft tissue swelling.no dislocation. IMPRESSION: As above
--- NOTE | 2018-07-29 16:00 | CP.PCM.DIS ---
Provider - Provider Date of Admission: 07/29/18 03:29 Attending physician: Diogo Oates Consults: 07/29/18 04:42 Orthopedic Consult Stat Comment: shoulder/humerus fracture Consulting Provider: Flynn Manley Consulting Physician: Flynn Manley Reason for Consult: shoulder/humerus fracture 07/29/18 06:43 Cardiology Consult Routine Comment: Consulting Provider: Bridger Boyd Consulting Physician: Bridger Boyd Reason for Consult: Syncope Time Spent in preparation of Discharge (in minutes): 20 Diagnosis - Discharge Diagnosis (1) Closed right humeral fracture Status: Acute Comment: -f/u with Dr Manley (2) Syncope Status: Resolved Comment: - no cardiac origen. -may be 2/2 ETOH (3) Diabetes Status: Acute Comment: -c/w home meds (4) HTN (hypertension) Status: Chronic Comment: -c/w home meds. -Aspirin discontinued (5) HLD (hyperlipidemia) Status: Chronic Comment: c/w home meds Hospital Course - Lab Results Lab Results: Most Recent Lab Values WBC 15.2 K/uL (4.8-10.8) H 07/29/18 10:30 RBC 3.57 Mil/uL (4.40-5.90) L 07/29/18 10:30 Hgb 11.4 g/dL (12.0-18.0) L 07/29/18 10:30 Hct 32.9 % (35.0-51.0) L 07/29/18 10:30 MCV 92.2 fl (80.0-94.0) 07/29/18 10:30 MCH 31.9 pg (27.0-31.0) H 07/29/18 10:30 MCHC 34.6 g/dL (33.0-37.0) 07/29/18 10:30 RDW 12.6 % (11.5-14.5) 07/29/18 10:30 Plt Count 222 K/uL (130-400) 07/29/18 10:30 MPV 9.4 fl (7.2-11.7) 07/29/18 10:30 Neut % (Auto) 81.1 % (50.0-75.0) H 07/29/18 10:30 Lymph % (Auto) 8.4 % (20.0-40.0) L 07/29/18 10:30 Love % (Auto) 10.2 % (0.0-10.0) H 07/29/18 10:30 Eos % (Auto) 0.0 % (0.0-4.0) 07/29/18 10:30 Baso % (Auto) 0.3 % (0.0-2.0) 07/29/18 10:30 Neut # (Auto) 12.3 K/uL (1.8-7.0) H 07/29/18 10:30 Lymph # (Auto) 1.3 K/uL (1.0-4.3) 07/29/18 10:30 Love # (Auto) 1.6 K/uL (0.0-0.8) H 07/29/18 10:30 Eos # (Auto) 0.0 K/uL (0.0-0.7) 07/29/18 10:30 Baso # (Auto) 0.0 K/uL (0.0-0.2) 07/29/18 10:30 Neutrophils % (Manual) 86 % (42-75) H 07/29/18 01:53 Lymphocytes % (Manual) 8 % (20-50) L 07/29/18 01:53 Monocytes % (Manual) 6 % (0-10) 07/29/18 01:53 Platelet Estimate Normal (NORMAL) 07/29/18 01:53 Large Platelets Present 07/29/18 01:53 RBC Morphology Normal (NORMAL) 07/29/18 01:53 PT 12.3 Seconds (9.8-13.1) 07/29/18 10:30 INR 1.1 07/29/18 10:30 Sodium 136 mmol/l (132-148) 07/29/18 10:30 Potassium 4.3 MMOL/L (3.6-5.0) 07/29/18 10:30 Chloride 98 mmol/L (98-107) 07/29/18 10:30 Carbon Dioxide 20 mmol/L (22-30) L 07/29/18 10:30 Anion Gap 22 (10-20) H 07/29/18 10:30 BUN 22 mg/dl (9-20) H 07/29/18 10:30 Creatinine 1.3 mg/dl (0.8-1.5) 07/29/18 10:30 Est GFR ( Amer) > 60 07/29/18 10:30 Est GFR (Non-Af Amer) 53 07/29/18 10:30 POC Glucose (mg/dL) 341 mg/dL (65-110) H 07/29/18 10:59 Random Glucose 373 mg/dL (75-110) H 07/29/18 10:30 Calcium 9.3 mg/dL (8.4-10.2) 07/29/18 10:30 Phosphorus 4.3 mg/dl (2.5-4.5) 07/29/18 10:30 Magnesium 1.9 MG/DL (1.6-2.3) 07/29/18 10:30 Total Bilirubin 1.1 mg/dl (0.2-1.3) 07/29/18 10:30 AST 27 U/L (17-59) 07/29/18 10:30 ALT 24 U/L (21-72) 07/29/18 10:30 Alkaline Phosphatase 51 U/L (38-126) 07/29/18 10:30 Troponin I < 0.0120 ng/mL (0.00-0.120) 07/29/18 01:53 Total Protein 7.2 G/DL (6.3-8.2) 07/29/18 10:30 Albumin 4.0 g/dL (3.5-5.0) 07/29/18 10:30 Globulin 3.1 gm/dL (2.2-3.9) 07/29/18 10:30 Albumin/Globulin Ratio 1.3 (1.0-2.1) 07/29/18 10:30 Vitamin B12 382 pg/mL (239-931) 07/29/18 10:30 Urine Color Yellow (YELLOW) 07/29/18 03:15 Urine Clarity Clear (Clear) 07/29/18 03:15 Urine pH 5.0 (5.0-8.0) 07/29/18 03:15 Ur Specific [place] 1.023 (1.003-1.030) 07/29/18 03:15 Urine Protein Negative mg/dL (NEGATIVE) 07/29/18 03:15 Urine Glucose (UA) >=500 mg/dL (NEGATIVE) 07/29/18 03:15 Urine Ketones 20 mg/dL (NEGATIVE) 07/29/18 03:15 Urine Blood Negative (NEGATIVE) 07/29/18 03:15 Urine Nitrate Negative (NEGATIVE) 07/29/18 03:15 Urine Bilirubin Negative (NEGATIVE) 07/29/18 03:15 Urine Urobilinogen 0.2-1.0 mg/dL (0.2-1.0) 07/29/18 03:15 Ur Leukocyte Esterase Neg Ghassan/uL (Negative) 07/29/18 03:15 Urine RBC (Auto) < 1 /hpf (0-3) 07/29/18 03:15 Urine Microscopic WBC < 1 /hpf (0-5) 07/29/18 03:15 Hyaline Casts 3-5 /hpf (0-2) H 07/29/18 03:15 Alcohol, Quantitative 70 mg/dl (0-10) H 07/29/18 01:53 Blood Type A POSITIVE 07/29/18 10:30 Blood Type Confirm A POSITIVE 07/29/18 01:53 Antibody Screen Negative 07/29/18 10:30 BBK History Checked No verified bt 07/29/18 10:30 - Hospital Course Hospital Course: 83 yo M with history of hypertension, NIDDM2, dyslipemia, glaucoma, admitted due to syncope x2 at home, and subsequent RIGHT shoulder trauma with displaced proximal humerus fracture and MAxillar fx. Pain controlled with pain meds and sling. Ortho consulted Dr Manley. Ortho agree to discharge pt and to have f/u next tuesday in his office 1 pm for evaluation and surgery schedule. Patient cleared by forensic chemist Dr Jade for surgery. Percocet script given to patient for pain controlled . Right Shoulder CXR and CT RUE showed right comminute fx, no dislocation. CT Maxillofacial w/o contrast CT showed Anterior facial soft tissue edema. Avulsion fractures of the dental roots canals in the anterior/left paramidline aspect of the maxilla. Overlying soft tissue contusion. Surrounding soft tissue emphysema. EKG NSR. Echo showed vigorous left ventricular systolic function with a small gradient in the left ventricular outflow tract. Discharge Exam - Head Exam Head Exam: NORMOCEPHALIC. absent: ATRAUMATIC Additional comments: Right side temporal small laceration superficial Left side frontal , left side chin small skin abrasion. - Respiratory Exam Respiratory Exam: Clear to PA & Lateral - Cardiovascular Exam Cardiovascular Exam: REGULAR RHYTHM, +S1, +S2 - GI/Abdominal Exam GI & Abdominal Exam: Normal Bowel Sounds - Extremities Exam Additional comments: RUE : Sling in place over right shoulder with limited ROM due to fx. Right hand no limited ROM, neurovascular intact - Psychiatric Exam Psychiatric exam: Normal Affect, Normal Mood - Skin Skin Exam: Abrasion - Additional Findings Additional findings: over face and right temporal area Discharge Plan - Discharge Medications Prescriptions: Bacitracin 1 cre TOP DAILY #1 fp - Follow Up Plan Condition: FAIR Disposition: HOME/ ROUTINE Instructions: Preventing Falls in the Older Adult, Shoulder Fracture (DC) Additional Instructions: Follow up with Dr Manley 07/31 at 1 PM -Take percocet 1 tab Q4H PRN pain . Script given to patient Referrals: Flynn Manley MD [Staff Provider] -
[2018-07-29] MEDS ORDERED: Potassium Chloride 20 mEq/15 ml LIQ UD PO ONE (16:25)
[2018-07-29 21:05] LABS: FOLATE 14.6 ng/mL
[2018-07-29] MEDS ORDERED: Latanoprost 0.005% Opht SOUTION OU SCH (22:00)
--- NOTE | 2018-07-30 01:20 | CARD ---
APPROVED REPORT Date of service: 07/29/2018 EKG Measurement Heart [id number] <Conclusion> Normal sinus rhythm Normal ECG
== END 2018-07-29 16:23 | disposition home or self-care (01) ==
LOC: H.ER 00:12 → H.ERHOLD 03:29 → H.TEL 04:56
PROVIDERS: ADMIT Internal Medicine; ATTEND Internal Medicine
DX: S42.201A Unspecified fracture of upper end of right humerus, initial encounter for closed fracture (principal); R55 Syncope and collapse; S01.81XA Laceration without foreign body of other part of head, initial encounter; S02.401A Maxillary fracture, unspecified side, initial encounter for closed fracture; S03.2XXA Dislocation of tooth, initial encounter; R01.1 Cardiac murmur, unspecified; R42 Dizziness and giddiness; Z23 Encounter for immunization; W19.XXXA Unspecified fall, initial encounter; Y92.009 Unspecified place in unspecified non-institutional (private) residence as the place of occurrence of the external cause; Z80.0 Family history of malignant neoplasm of digestive organs; Z79.84 Long term (current) use of oral hypoglycemic drugs; Z87.891 Personal history of nicotine dependence; Z90.49 Acquired absence of other specified parts of digestive tract; D72.829 Elevated white blood cell count, unspecified; E11.9 Type 2 diabetes mellitus without complications; E78.00 Pure hypercholesterolemia, unspecified; E78.5 Hyperlipidemia, unspecified; H40.9 Unspecified glaucoma; I10 Essential (primary) hypertension; M48.00 Spinal stenosis, site unspecified
CPT/HCPCS: 36415; 70450; 70486; 71045; 73030; 73200; 80053; 81003; 82607; 82746; 82948; 83735; 84100; 84484; 85025; 85610; 86850; 86900; 87086; 90471; 90714; 93005; 93306; 99285; G0378; G0480; J0360; J7030